=== PATIENT | male | born 1990 | race Caucasian/White ===

== ENCOUNTER → 2020-05-14 16:06 | Outpatient (CLI) | payer BC, SELFPAY ==
[2020-05-17 10:15] LABS: COVID19 Sendout Not Detected (Not Detected)
== END ==
PROVIDERS: PCP Family Medicine; Visit Provider Physician Assistant
DX: R05 Cough (principal); R06.02 Shortness of breath
CPT/HCPCS: 87635

== ENCOUNTER → 2020-05-19 10:51 | Outpatient (CLI) | payer BC, SELFPAY ==
--- NOTE | 2020-05-19 10:52 | DI.RAD.S_ITS ---
PROCEDURE: XR CHEST 2V INDICATIONS: cough, sob, covid -, R shoulder pain, wheezing TECHNIQUE: 2 views of the chest were acquired. COMPARISON: None. FINDINGS: Surgical changes and devices: None. Lungs and pleura: Lungs are clear. No pleural effusions or pneumothorax. Mediastinum: Mediastinal contours are normal. Heart size is normal. Bones and chest wall: No suspicious bony abnormalities. Soft tissues appear unremarkable. IMPRESSION: Negative chest Dictated by: Guillermo Melton M.D. on 05/19/2020 at 11:18 Approved by: Guillermo Melton M.D. on 05/19/2020 at 11:18
== END ==
PROVIDERS: PCP Family Medicine; Referring Provider Physician Assistant; Visit Provider Physician Assistant
DX: R05 Cough (principal); R06.02 Shortness of breath; R06.2 Wheezing; M25.511 Pain in right shoulder
CPT/HCPCS: 71046

== ENCOUNTER → 2021-10-02 09:41 | Outpatient (CLI) | payer BC, SELFPAY ==
--- NOTE | 2021-10-02 | DI.RAD.S_ITS ---
PROCEDURE: XR LUMBAR SPINE 2-3V INDICATIONS: Lower Back/Lumbar Spine Pain TECHNIQUE: 3 views of the lumbar spine were acquired. COMPARISON: None. FINDINGS: Bones: 5 ahm-osm-[id number] vertebrae are present. There is normal bony alignment. No vertebral body compression fractures. There are small superior endplate Schmorl's nodes within the L4 and L5 vertebral bodies. There is mild facet arthropathy at L5-S1. No suspicious bony lesions. Soft tissues: Overlying bowel gas pattern is normal. No suspicious soft tissue calcifications. IMPRESSION: 1. Small superior endplate Schmorl's nodes in the L4 and L5 vertebral bodies. 2. Mild facet arthropathy at L5-S1. Dictated by: Romero Chance M.D. on 10/02/2021 at 16:42 Approved by: Romero Chance M.D. on 10/02/2021 at 16:43
== END ==
PROVIDERS: Referring Provider Chiropractor; Visit Provider Chiropractor
DX: M99.03 Segmental and somatic dysfunction of lumbar region (principal); M51.46 Schmorl's nodes, lumbar region; M47.817 Spondylosis without myelopathy or radiculopathy, lumbosacral region; M54.50 Low back pain, unspecified
CPT/HCPCS: 72100

== ENCOUNTER → 2021-10-08 07:27 | Outpatient (CLI) | payer BC, SELFPAY ==
--- NOTE | 2021-10-08 | DI.RAD.S_ITS ---
PROCEDURE: XR LUMBAR SPINE MIN 4V INDICATIONS: Low back pain, unspecified TECHNIQUE: 5 views of the lumbar spine were acquired, including bilateral oblique views. COMPARISON: [facility], , XR LUMBAR SPINE 2-3V, 10/02/2021, 9:45. FINDINGS: Bones: 5 nonrib-bearing vertebrae are present. Maintained alignment. Redemonstrated endplate irregularities, most consistent with Schmorl's nodes. The disc space heights are maintained. No vertebral body compression fractures. No suspicious bony lesions. Soft tissues: Overlying bowel gas pattern is normal. No suspicious soft tissue calcifications. Oblique images: No pars defects. IMPRESSION: No significant interval change. Dictated by: Emil Sunshine M.D. on 10/08/2021 at 7:56 Approved by: Emil Sunshine M.D. on 10/08/2021 at 8:00
--- NOTE | 2021-10-08 | DI.RAD.S_ITS ---
PROCEDURE: XR HIP W PEL IF DONE BILAT 2V INDICATIONS: Low back pain, unspecified TECHNIQUE: AP pelvis with lateral view(s) of the bilateral hip(s). COMPARISON: None. FINDINGS: Bones: No fractures or dislocations. Pelvic ring appears intact. No suspicious bony lesions. Soft tissues: The visualized bowel gas pattern is normal. No suspicious soft tissue calcifications. IMPRESSION: No acute osseous abnormality. Dictated by: Emil Sunshine M.D. on 10/08/2021 at 8:01 Approved by: Emil Sunshine M.D. on 10/08/2021 at 8:04
== END ==
PROVIDERS: Referring Provider Chiropractor; Visit Provider Chiropractor
DX: M25.552 Pain in left hip (principal); M54.50 Low back pain, unspecified; M99.03 Segmental and somatic dysfunction of lumbar region; M99.06 Segmental and somatic dysfunction of lower extremity
CPT/HCPCS: 72110; 73521

== ENCOUNTER 2022-01-23 14:38 | Emergency (ER) | payer OTHER, SELFPAY ==
[2022-01-23 14:55] VITALS: PULSE 77; O2SAT 98
[2022-01-23 14:56] VITALS: BP 129/61; PULSE 77; O2SAT 97
[2022-01-23 14:58] VITALS: BP 129/61; PULSE 74; RESP 18; TEMP 36.6; O2SAT 96; BMI 34.4
--- NOTE | 2022-01-23 15:22 | DI.RAD.S_ITS ---
PROCEDURE: XR LUMBAR SPINE 2-3V INDICATIONS: low back pain TECHNIQUE: 3 views of the lumbar spine were acquired. COMPARISON: [facility], CR, XR LUMBAR SPINE 2-3V, 10/02/2021, 9:45. [facility], CR, XR LUMBAR SPINE MIN 4V, 10/08/2021, 7:31. FINDINGS: Bones: 5 [id number] vertebrae are present. No vertebral body compression fractures. No suspicious bony lesions. Mild dextroconvex scoliotic curvature is noted. Mild disc space narrowing is seen at L4-L5 and L5-S1. Associated endplate irregularity and sclerosis are seen. Lower lumbar spine facet arthropathy is seen. Soft tissues: Overlying bowel gas pattern is normal. No suspicious soft tissue calcifications. IMPRESSION: Premature lower lumbar spine degenerative changes are seen. If it would be helpful for clinical management decision making, please consider a dedicated, scheduled lumbar spine MRI for further evaluation (assuming that there is no contraindication). Dictated by: Otf Alfaro M.D. on 01/23/2022 at 14:40 Approved by: Otf Alfaro M.D. on 01/23/2022 at 14:41
--- NOTE | 2022-01-23 15:23 | ED.BACK ---
HPI - Back Pain/Injury <Temo Morocho PA-C - Last Filed: 01/23/22 16:24> General Chief Complaint: Back Pain/Injury Stated Complaint: Severe lower back/hip pain- left side Time Seen by Provider: 01/23/22 15:15 Source: patient History of Present Illness HPI Narrative: Patient is a 31-year-old male who presents to the ED complaining of low back pain. He has been seeing a chiropractor off and on for the past 4 years for the same complaint. He states that over the last 4 years. It is becoming more more frequent that he is having issues with low back pain. He describes the pain to be located in left side of his lower back radiating to his left buttocks and around into his anterior thigh. He describes the pain to be sharp in nature gets worse with bowling and with playing golf. 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 He denies any recent trauma or fall he states that the pain that radiates down into his leg seems to be in line with his pain in his back. He denies any dysuria denies any fever he denies any abdominal pain does any other history. No previous back surgery denies taking any medications. Related Data Previous Rx's Medication Instructions Recorded albuterol sulfate 90 mcg/actuation 2 puff INHALATION Q4-6H PRN #8.5 05/19/20 aerosol inhaler gram prednisone 20 mg tablet 20 mg PO DAILY #5 tab 05/19/20 cyclobenzaprine 10 mg tablet 10 mg PO Q8H PRN #21 tab 01/23/22 cyclobenzaprine 10 mg tablet 10 mg PO Q8H PRN #21 tab 01/23/22 ibuprofen 800 mg tablet 800 mg PO Q8H PRN #21 tab 01/23/22 ibuprofen 800 mg tablet 800 mg PO Q8H PRN #21 tab 01/23/22 tramadol 50 mg tablet 50 mg PO Q8H PRN #20 tab 01/23/22 Allergies Allergy/AdvReac Type Severity Reaction Status Date / Time No Known Drug Allergies Allergy Verified 01/23/22 15:03 Review of Systems <Temo Morocho PA-C - Last Filed: 01/23/22 16:24> Review of Systems ROS Unobtainable: All systems reviewed & are unremarkable except as noted in HPI and below Constitutional Constitutional: Denies chills, Denies fatigue, Denies fever(s), Denies frequent falls, Denies lethargy and Denies weakness Eyes Eyes: Denies change in vision, Denies eye discharge, Denies irritation and Denies loss of vision ENT Ears, Nose, Mouth, and Throat: Denies change in voice, Denies dizziness, Denies neck pain, Denies sore throat and Denies throat swelling Cardiovascular Cardiovascular: Denies chest pain, Denies irregular heart rhythm, Denies lightheadedness, Denies palpitations, Denies dyspnea, Denies dyspnea on exertion and Denies orthopnea Respiratory Respiratory: Denies cough, Denies dyspnea, Denies dyspnea on exertion and Denies wheezing Gastrointestinal Gastrointestinal: Denies abdominal pain, Denies change in bowel habits, Denies diarrhea, Denies nausea and Denies vomiting Genitourinary Genitourinary: Denies hematuria, Denies flank pain, Denies urinary incontinence and Denies urinary urgency Musculoskeletal Musculoskeletal: Reports back pain, Denies muscle weakness, Denies neck pain, Denies numbness and Denies tingling Integumentary/Breasts Skin/Breast: Denies pruritus, Denies erythema, Denies rash and Denies wounds Neurologic Neurologic: Denies behavioral changes, Denies confusion, Denies dizziness, Denies frequent falls, Denies loss of vision, Denies numbness, Denies tingling and Denies weakness Psychiatric Psychiatric: Denies anxiety, Denies behavioral changes, Denies confusion, Denies depression, Denies homicidal ideation and Denies suicidal ideation Endocrine Endocrine: Denies fatigue, Denies flushing and Denies palpitations Hematologic/Lymphatic Hematologic/Lymphatic: Denies easy bruising Allergic/Immunologic Allergic/Immunologic: Denies urticaria, Denies throat swelling and Denies wheezing Patient History <Temo Morocho PA-C - Last Filed: 01/23/22 16:24> Medical History Cough Shortness of breath Social History Smoking Status: Never smoker Smoking Status: Never smoker alcohol intake frequency: holidays/special occasions only Substance Use Type: does not use Exam <Temo Morocho PA-C - Last Filed: 01/23/22 16:24> Initial Vital Signs Initial Vital Signs: Vital Signs Pulse Rate 77 01/23/22 14:55 Pulse Oximetry 98 01/23/22 14:55 Const General: cooperative and healthy appearing Nutritional Appearance: average body habitus Orientation: Orientation [facility] Head: normal to inspection and normocephalic Ears: hearing grossly normal bilaterally Nose: external nose normal Face and sinus: normal facial exam Back/Spine/Pelvis Back: normal to inspection and back tenderness Thoracic/Lumbar Spine: thoraco-lumbar ROM limited, thoraco-lumbar spasm and thoracic spinal tenderness <Sean Mcclure DO - Last Filed: 01/23/22 17:55> Initial Vital Signs Initial Vital Signs: Vital Signs Pulse Rate 77 01/23/22 14:55 Pulse Oximetry 98 01/23/22 14:55 Course <Temo Morocho PA-C - Last Filed: 01/23/22 16:24> Orders Ordered: ED Orders 01/23/22 15:22 XR lumbar spine 2-3V Stat Discontinued Medications Cyclobenzaprine HCl (Cyclobenzaprine 10 Mg Tablet) 10 mg PO NOW ONE Stop: 01/23/22 16:47 Last Admin: 01/23/22 16:56 Dose: 10 mg Documented by: AMILCAR Ketorolac Tromethamine (Ketorolac 30 Mg/Ml Vial) 60 mg IM NOW ONE Stop: 01/23/22 15:23 Last Admin: 01/23/22 15:33 Dose: 60 mg Documented by: AMILCAR Reevaluation(s) Reevaluation #1: Patient reports some relief from this pain from the Toradol injection. Vital Signs Vital signs: Vital Signs - 8 hr 01/23/22 14:55 01/23/22 14:56 01/23/22 14:58 Temperature 97.8 F Pulse Rate 77 77 74 Respiratory Rate 18 Blood Pressure 129/61 129/61 Pulse Oximetry 98 97 96 <DO Susan Anderson Last Filed: 01/23/22 17:55> Orders Ordered: ED Orders 01/23/22 15:22 XR lumbar spine 2-3V Stat Discontinued Medications Cyclobenzaprine HCl (Cyclobenzaprine 10 Mg Tablet) 10 mg PO NOW ONE Stop: 01/23/22 16:47 Last Admin: 01/23/22 16:56 Dose: 10 mg Documented by: AMILCAR Ketorolac Tromethamine (Ketorolac 30 Mg/Ml Vial) 60 mg IM NOW ONE Stop: 01/23/22 15:23 Last Admin: 01/23/22 15:33 Dose: 60 mg Documented by: AMILCAR Vital Signs Vital signs: Vital Signs - 8 hr 01/23/22 14:55 01/23/22 14:56 01/23/22 14:58 Temperature 97.8 F Pulse Rate 77 77 74 Respiratory Rate 18 Blood Pressure 129/61 129/61 Pulse Oximetry 98 97 96 [facility] - Back Pain/Injury <Temo Morocho PA-C - Last Filed: 01/23/22 16:24> Differential Diagnosis Differential diagnosis: Likely strain of lumbar region Imaging Data lumbar x-ray: Radiologist's Impression: PROCEDURE:? XR LUMBAR SPINE 2-3V ? INDICATIONS:? low back pain ? TECHNIQUE:? 3 views of the lumbar spine were acquired.? ? COMPARISON:? [facility], CR, XR LUMBAR SPINE 2-3V, 10/02/2021, 9:45.? [facility], CR, XR LUMBAR SPINE MIN 4V, 10/08/2021, 7:31. ? FINDINGS:? ? Bones:? 5 ffu-vsl-[id number] vertebrae are present.? No vertebral body compression fractures.? No suspicious bony lesions.? ? Mild dextroconvex scoliotic curvature is noted.? ? Mild disc space narrowing is seen at L4-L5 and L5-S1.? Associated endplate irregularity and sclerosis are seen. Lower lumbar spine facet arthropathy is seen.? ? Soft tissues:? Overlying bowel gas pattern is normal.? No suspicious soft tissue calcifications.? ? ? IMPRESSION:? Premature lower lumbar spine degenerative changes are seen. ? If it would be helpful for clinical management decision making, please consider a dedicated, scheduled lumbar spine MRI for further evaluation (assuming that there is no contraindication).? ? ? Dictated by: Otf Alfaro M.D. on 01/23/2022 at 14:40 ? ? Approved by: Otf Alfaro M.D. on 01/23/2022 at 14:41?? [facility] Narrative Medical decision making narrative: Patient was evaluated today for low back pain. X-rays of the lumbar spine were ordered and compared to his previous films from September of 2021. There did show some disc space narrowing at L4-5 and L5-S1 which is suggestive of some degenerative changes he has also got some spondylosis at those adjacent levels. Patient has been treated in the past with clinical care manager. I spoke with him about the findings on his x-rays and treatment options that I would suggest would be to prescribe Flexeril and ibuprofen as well as some pain medications as needed. He can follow up with his PCP or his chiropractor for any further care if his pain becomes worse he can return to the ED. Patient will be discharged home. Discharge Plan Departure Patient Disposition: Home Clinical Impression: Strain of lumbar region, Lumbar back pain Instructions: DI for Low Back Pain, DI for Back Spasm Activity Restrictions/Additional Instructions: You were seen today for your low back pain. The comparison x-rays that were done today were compared to your x-ray films in September of 2021. It did show evidence of disc space narrowing at L4-5 and L5-S1. It also showed evidence of some arthritis at those same levels. It is feasible today that will prescribe some muscle relaxers and anti-inflammatory medications to treat your pain and symptoms today. I will also prescribe some pain medications she can take as needed. You can follow-up with your chiropractor for further evaluation or you can follow-up with her PCP for referral to a it communications specialist if you so desire. A work note was also created to return to work a week from tomorrow. Thank you for the opportunity to care for you today Prescriptions: New cyclobenzaprine 10 mg tablet 10 mg PO Q8H PRN (Reason: muscle spasm) Qty: 21 0RF ibuprofen 800 mg tablet 800 mg PO Q8H PRN (Reason: pain) Qty: 21 0RF cyclobenzaprine 10 mg tablet 10 mg PO Q8H PRN (Reason: muscle spasm) Qty: 21 0RF ibuprofen 800 mg tablet 800 mg PO Q8H PRN (Reason: pain) Qty: 21 0RF tramadol 50 mg tablet 50 mg PO Q8H PRN (Reason: pain) Qty: 20 0RF No Action prednisone 20 mg tablet 20 mg PO DAILY Qty: 5 0RF albuterol sulfate 90 mcg/actuation HFA aerosol inhaler 2 puff INHALATION Q4-6H PRN (Reason: bronchospasm) Qty: 8.5 0RF Stand Alone Forms: Work Release Note <Sean Mcclure, DO - Last Filed: 01/23/22 17:55> Cosign ED Attending Cosignature Attestation: Dr Mcclure Co-Sign Statement: I was available for consultation during this patient's emergency department visit. This chart is signed by myself for administrative purposes only. I did not have direct contact with this patient during this visit. They were seen independently by the APC.
[2022-01-23] MEDS: KETOROLAC 30 MG/ML VIAL 60 MG IM (15:33)
[2022-01-23] MEDS: CYCLOBENZAPRINE 10 MG TABLET PO (16:56)
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
== END 2022-01-23 17:12 | disposition home or self-care (01) ==
PROVIDERS: Emergency Provider Physician Assistant
DX: S39.012A Strain of muscle, fascia and tendon of lower back, initial encounter (principal); X58.XXXA Exposure to other specified factors, initial encounter
CPT/HCPCS: 72100; 96372; 99283; 99284; J1885

== ENCOUNTER → 2022-02-23 17:11 | Outpatient (CLI) | payer BC, SELFPAY ==
--- NOTE | 2022-02-23 17:13 | DI.MRI.S_ITS ---
PROCEDURE: MR LUMBAR SPINE WO CON INDICATIONS: Radiculopathy, lumbar region TECHNIQUE: Noncontrast sagittal T1 spin echo and T2 fast echo, sagittal STIR, and T2 fast spin echo through the lumbar spine. In cases with scoliosis, additional coronal T2 fast spin echo may be performed. COMPARISON: [facility], CR, XR LUMBAR SPINE MIN 4V, 10/08/2021, 7:31. [facility], CR, XR LUMBAR SPINE 2-3V, 01/23/2022, 15:13. FINDINGS: Image quality: Excellent. Alignment and Curvature: There is normal bony alignment. Bone Marrow: Marrow is of normal overall signal. No acute vertebral body compression fractures. Chronic appearing Schmorl's nodes can be seen the superior endplates L4 and L5 anteriorly. Spinal Cord: Conus medullaris terminates at the L1 level. Visualized cord demonstrates normal signal and size. Paraspinous Soft Tissues: No paravertebral masses. T12-L1: Normal appearance. L1-L2: Normal appearance. L2-L3: The disc height and disk signal are well-preserved. Mild to moderate disc bulge is seen, which is eccentric to the right. There is moderate left-sided and mild right-sided neural foraminal narrowing seen. Mild to moderate central canal narrowing is seen. L3-L4: Mild loss of disc height is seen. Loss of disc signal is seen. Moderate disc bulge is seen, with a central disc protrusion. Moderate bilateral neural foraminal narrowing is seen. Moderate central canal narrowing is seen. L4-L5: Qjyx-[id number] loss of disc height and disc signal can be seen. Moderate disc osteophyte complex is seen. There is a superimposed central disc protrusion. There is a focal annular fissure seen posteriorly. Mild facet joint hypertrophy is seen. There is moderate right-sided and at least moderate left-sided neural foraminal narrowing. Moderate central canal narrowing is seen. L5-S1: Mild to moderate loss of disc height and disc signal can be seen. Mild disc bulge is seen, with a superimposed central/left disc extrusion, with inferior migration of the disc material, as on series 2, image 11 and on series 5, image 31. Moderate facet joint hypertrophy is seen. There is moderate to severe bilateral neural foraminal narrowing seen, with an associated a degree of compression seen upon the exiting nerve roots. At least moderate central canal narrowing is seen. Mass effect can be seen upon the regional nerve roots, particularly upon the transiting left S1 nerve root. IMPRESSION: At L5-S1, there is focal degenerative change seen, with a central/left disc extrusion, with associated central canal narrowing and mass effect upon the regional nerve roots. Moderate to severe bilateral neural foraminal narrowing can also be seen at L5-S1, with associated mass effect upon the exiting nerve roots. Milder degenerative changes are seen elsewhere. Dictated by: Otf Alfaro M.D. on 02/23/2022 at 16:58 Approved by: Otf Alfaro M.D. on 02/23/2022 at 17:01
== END ==
PROVIDERS: Referring Provider Chiropractor; Visit Provider Chiropractor
DX: M47.27 Other spondylosis with radiculopathy, lumbosacral region (principal); M51.17 Intervertebral disc disorders with radiculopathy, lumbosacral region; M48.07 Spinal stenosis, lumbosacral region
CPT/HCPCS: 72148

== ENCOUNTER → 2022-03-04 11:25 | Outpatient (CLI) | payer BC, SELFPAY ==
[2022-03-04 12:36] LABS: COVID19 -Nasal RAPID Negative (Negative)
== END ==
PROVIDERS: Visit Provider Family Medicine Sleep Medicine
DX: Z20.822 Contact with and (suspected) exposure to COVID-19 (principal)
CPT/HCPCS: 87635; C9803

== ENCOUNTER 2022-03-07 12:08 | Day surgery (SDC) | payer BC, SELFPAY ==
[2022-03-04 11:31] VITALS: BMI 39.2
[2022-03-07] VITALS (9 sets, daily range): BP systolic 99–117; BP diastolic 55–82; PULSE 70–82; RESP 14–18; TEMP 36.4–36.9; O2SAT 12–98; BMI 39.2
--- NOTE | 2022-03-07 | DI.RAD.S_ITS ---
PROCEDURE: XR LUMBAR SPINE 2-3V INDICATIONS: L5-S1 MICRODISECTOMY TECHNIQUE: 2 fluoroscopic images of the lumbar spine were acquired. COMPARISON: [facility], , XR LUMBAR SPINE 2-3V, 01/23/2022, 15:13. FINDINGS: Two fluoroscopic images annotated L5-S1 were submitted. IMPRESSION: Intraoperative fluoroscopic images. Dictated by: Emil Sunshine M.D. on 03/07/2022 at 16:05 Approved by: Emil Sunshine M.D. on 03/07/2022 at 16:06
[2022-03-07] MEDS: ACETAMINOPHEN 325 MG TABLET 975 MG PO (13:05)
[2022-03-07] MEDS: LACTATED RINGERS 1,000 ML 42 ML IV (13:05)
--- NOTE | 2022-03-07 14:40 | P.OP.PRE_ITS ---
Pre-operative Note COVID-19 COVID-19 status: Negative Result date/Date tested (Pos, Neg/Pending): 03/06/22 Criteria for continued procedure: Expected advancement of disease process, Possibility delay results in more complex future surgery or treatment, Continuing or worsening of significant or severe pain, Deterioration of the patient's condition or overall health and Delay expected to result in less- positive ultimate med/surg outcome Interval Note History & Physical reviewed/Exam performed by Physician: Yes Changes to H&P: No
--- NOTE | 2022-03-07 14:45 | PM.OP.1 ---
Operative Date/Time/Diagnoses Date of procedure: 03/07/22 Time of procedure: 15:15 Pre-op diagnosis: 1. L5-S1 disc herniation 2. Lumbar radiculopathy Post-op diagnosis: same Procedure & Clinicians Procedure: 1. L5-S1 left microdiscectomy 2. Utilization of microsurgical technique and operating microscope Same procedure as scheduled: Yes Indications: Patient has been having acute onset left leg pain weakness and numbness due to a large L5-S1 disc herniation. Patient failed multiple conservative management with worsening pain weakness and numbness in his lower extremity. Patient has been having difficulty performing activity of daily living. After discussing risks benefits of treatment options, patient elected proceed with surgery. Surgeon: Emilie Rdz Mathematics Improvement Teacher: Kathrine Tejada Click Yes if Unassisted: No Anesthesia Type: General Operative Notes Closure Type: primary Specimen(s): none sent Estimated Blood Loss (mL): 5 Blood products transfused: none Procedure in detail: Patient was seen in the preoperative area. Risks and benefits of the surgery was discussed with the patient. Informed consent was obtained from the patient and placed in the chart. Surgical site was marked. Patient was taken to the operative room. General anesthesia was administered. Prophylactic antibiotic was given to the patient less than 30 min before the incision was made. Patient was placed into a prone position on the Chaz table. Patient's back was then prepped and draped in the sterile fashion. Time-out was performed at this time. Using AP and lateral C-arm imaging the interval between L5-S1 was identified and marked on patient's back. A 1 inch incision 1 in from midline was made on the left side. The fascia was incised in line with skin incision. Globus MARS retractors was placed inside the incision and docked onto the L5 lamina. Using microsurgical technique and operating microscope, a L5 laminotomy was performed using a Kerrison rongeur. Liagamentum flavum was resected at the site of the laminotomy. The disc space at L5-S1 was identified. Microdiscectomy was performed by incising the annulus with #11 blade. Microcurettes and pituitary was used to removed herniated disc fragments of disc from the epidural space. After the microdiskectomy was completed, the area medial lateral superior and inferior to the area of the microdiskectomy was inspected and explored using a micro curette. No other impinging structure was identified. The wound was then irrigated with sterile normal saline. 40 mg Depo-Medrol was placed into the epidural space. The deep fascia was closed with 1-0 Vicryl. The subcutaneous tissue was closed with 2-0 Vicryl. The skin was closed with skin vincent. Patient tolerated the procedure well. There were no complications. Patient was transferred recovery room in stable condition. Complications: none Post-operative Condition: stable Disposition: PACU Plan for aftercare: Discharge to home
[2022-03-07] MEDS: CEFAZOLIN 2 GM/20 ML SYRINGE IV (14:55)
--- NOTE | 2022-03-07 15:08 | SUR.OPER ---
Prone on spine table, head in foam head support, padded chest and pelvic supports, gel pad at knees, lower legs supported by pillows; nipples, genitalia and toes free of pressure, arms secured on foam padded arm boards at <90 degrees abduction. Tape over blanket at thigh secured to table.
[2022-03-07] MEDS: BUPIVACAINE 0.25% (PF) 60 ML, EPINEPHrine 0.3 MG INJ (15:15)
[2022-03-07] MEDS: OXYCODONE IR 5 MG TABLET PO ×2 (16:14→16:53)
[2022-03-07] MEDS: fentaNYL 100 MCG/2 ML INJ IV (16:16)
--- NOTE | 2022-03-07 16:32 | SUR.PHASEI ---
03/07/22-1631-Rx to [facility]AQUIN-to give to Paige (significant other) to bring to pharmacy.
--- NOTE | 2022-03-07 17:15 | SUR.PHASEII ---
Assisted patient with dressing, able to move himself in the bed to pull up pants and pull down T-shirt. Repeats that the pain is better than it was. Denies nausea, skin warm and dry.
--- NOTE | 2022-03-07 17:19 | SUR.PHASEII ---
Patient is ready for discharge, waiting for bicycle taxi driver to arrive.
--- NOTE | 2022-03-07 18:03 | SUR.PHASEII ---
Pt discharge at 1750 after waiting ride who went to pharmacy. Pt with scant shadow drainage on 2x2 dressing. Reinforced with 2x2 and tegaderm. Pt steady on feet to WC and then to car. DC to home with girlfriend and mom.
== END 2022-03-07 17:50 | disposition home or self-care (01) ==
PROVIDERS: Referring Provider Orthopaedic Surgery Orthopaedic Surgery of the Spine; Visit Provider Orthopaedic Surgery Orthopaedic Surgery of the Spine
PROC: (CPT 63030; principal; 2022-03-07 13:45)
DX: M51.26 Other intervertebral disc displacement, lumbar region (principal); M54.16 Radiculopathy, lumbar region
CPT/HCPCS: 63030; 72100; 76000; J0171; J0330; J0690; J1100; J1885; J2250; J2405; J2704; J2920; J3010

== ENCOUNTER → 2022-10-06 14:43 | Outpatient (CLI) | payer BC, SELFPAY ==
[2022-10-06 17:12] LABS: Influenza A - CEPHEID Flu A NEGATIVE (NEGATIVE); Influenza B - CEPHEID Flu B NEGATIVE (NEGATIVE); Respiratory Syncytial Virus Negative (Negative)
[2022-10-06 17:15] LABS: COVID-19 CEPHEID 4-PLEX PCR Negative (Negative)
== END ==
PROVIDERS: PCP Internal Medicine; Visit Provider Nurse Practitioner Family
DX: J02.9 Acute pharyngitis, unspecified (principal); J06.9 Acute upper respiratory infection, unspecified; Z20.822 Contact with and (suspected) exposure to COVID-19
CPT/HCPCS: 0241U; 87070; 87147

== ENCOUNTER 2023-07-05 08:10 | Emergency (ER) | payer OTHER, SELFPAY ==
[2023-07-05] VITALS (10 sets, daily range): BP systolic 113–151; BP diastolic 61–73; PULSE 61–84; RESP 16; TEMP 36.9; O2SAT 94–97; BMI 35.2
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
[2023-07-05] MEDS: ACETAMINOPHEN 325 MG TABLET 650 MG PO (08:54)
== END 2023-07-05 09:44 | disposition home or self-care (01) ==
PROVIDERS: Emergency Provider Emergency Medicine; PCP Internal Medicine
DX: S16.1XXA Strain of muscle, fascia and tendon at neck level, initial encounter (principal); V89.2XXA Person injured in unspecified motor-vehicle accident, traffic, initial encounter
CPT/HCPCS: 72040; 72072; 81003; 99283; 99284